=== PATIENT | male | born 1955 | race Caucasian/White ===

== ENCOUNTER 2024-12-04 17:39 | Emergency (ER) | payer MEDICARE, SELFPAY ==
[2024-12-04 17:53] VITALS: BP 127/96; PULSE 106; RESP 18; TEMP 36.6; O2SAT 96; BMI 26.3
[2024-12-04 18:34] LABS: MANUAL DIFF FLAG NO
[2024-12-04 18:56] LABS: Alanine Aminotransferase 25 U/L (0-40); Albumin Level 4.4 g/dL (3.5-5.0); Alkaline Phosphatase 87 U/L (39-117); Anion Gap 13 (12-20); Aspartate Amino Transferase 24 U/L (5-37); Basophils Absolute Auto 0.1 X10*3/uL (0.0-0.2); Basophils Percent Auto 0.9 % (0-2); Bilirubin Direct 0.2 mg/dL (0.0-0.5); Bilirubin Total 0.7 mg/dL (0.0-1.0); Blood Urea Nitrogen 22 mg/dL (9-16); Calcium 9.3 mg/dL (8.4-10.2); Carbon Dioxide 22 mmol/L (22-29); Chloride 107 mmol/L (96-108); Creatinine Clr Calc Pharmacy 68.8; Eosinophils Absolute Auto 0.1 X10*3/uL (0.0-0.4); Eosinophils Percent Auto 2.1 % (0-4); Estimated Glomerular Filt Rate > 60; Glucose Random 100 mg/dL (60-115); Hematocrit 42.8 % (42.0-52.0); Hemoglobin 14.8 g/dl (14.0-18.0); Imm Gran Abs Auto 0.02 X10*3/uL (0.00-0.03); Imm Gran Pct Auto 0.4 % (0.0-0.4); Lymphocytes Absolute Auto 1.2 X10*3/uL (1.2-4.9); Lymphocytes Percent Auto 22.1 % (20-40); Mean Corpuscular HGB Conc 34.6 g/dl (31.0-36.0); Mean Corpuscular Volume 89.5 fL (80.0-98.0); Mean Platelet Volume 11.3 fL (9.4-12.4); Monocytes Absolute Auto 1.1 X10*3/uL (0.1-1.2); Monocytes Percent Auto 19.5 % (2-11); Neutrophils Absolute Auto 3.1 x10*3/uL (2.0-8.3); Platelet Count 144 X10*3/uL (160-400); Potassium 4.1 mmol/L (3.3-5.1); Red Blood Count 4.78 X10*6/uL (4.60-5.80); Red Cell Distribution Width 12.9 % (11.0-16.0); Sodium 138 mmol/L (135-145); Total Protein 7.2 g/dL (6.5-8.0); White Blood Count 5.6 X10*3/uL (4.8-10.8)
[2024-12-04 19:15] LABS: Influenza A PCR NEGATIVE (Negative); Influenza B PCR NEGATIVE (Negative); Resp Syncy Virus RNA Qual PCR NEGATIVE (Negative); SARS COV2 PCR INHOUSE NEGATIVE (Negative)
[2024-12-04 19:31] LABS: Erythrocyte Sedimentation Rate 8 MM/HR (0-15)
--- NOTE | 2024-12-04 21:58 | ED_ITS ---
HPI - Skin/Abscess/Foreign Bdy General Chief complaint: Skin/Abscess/Foreign Body Stated complaint: Lumps on back of nec Time Seen by Provider: 12/04/24 21:55 Source: patient and family ( and [id number] who josiah nurse here at [facility] [place]) Mode of arrival: ambulatory Limitations: no limitations History of Present Illness ED Provider: Dr. Russell Fisher HPI narrative: 69-year-old male who presents emergency department for evaluation of a 1 behind his right ear which she states it is getting bigger. States that 3 or 4 days prior he developed a sharp pain behind his ear. He states that over the last 24 hours he developed a rash on the right side in his neck and a bump by in his ear and on his scalp. The patient has been working outdoors and he may have been exposed to poison viviana. He states he has had multiple episodes of poison viviana in the past but the rashes never been painful. He states the rash is Usually very itchy. Patient states this rash is painful and is 8/10 in his worse. He denied fever, chills. He denied nausea, vomiting, diarrhea. Related Data Home Medications ?Medication ?Instructions ?Recorded ?Confirmed atorvastatin 20 mg tablet 20 mg PO DAILY 11/26/22 11/26/22 levothyroxine 50 mcg tablet 50 mcg PO DAILY 11/26/22 11/26/22 prednisone 20 mg tablet mg PO 11/26/22 11/26/22 Previous Rx's ?Medication ?Instructions ?Recorded prednisone 50 mg tablet 50 mg PO DAILY 5 days #5 tabs 11/26/22 morphine 15 mg immediate release 15 mg PO Q6H PRN pain #14 tabs 12/04/24 tablet prednisone 10 mg tablet 10 mg PO DIRECTED #40 tabs 12/04/24 valacyclovir 1 gram tablet 1,000 mg PO Q8H 7 days #21 tabs 12/04/24 (Valtrex) Allergies Allergy/AdvReac Type Severity Reaction Status Date / Time No Known Allergies Allergy Verified 12/04/24 17:56 [No Known Allergies*] Review of Systems 2 Review of Systems: Yes all other systems are reviewed and are negative PMFSH Social History Social History Advance Directives: No Advance Directives Information Provided: Yes Physical Exam 2 Vital Signs: Vital Signs: Last Vital Signs Temp 97.9 F 12/04/24 22:56 Pulse 77 12/04/24 22:56 Resp 17 12/04/24 22:56 BP 125/89 12/04/24 22:56 Pulse Ox 98 12/04/24 22:56 O2 Del Method Room Air 12/04/24 22:56 BMI result Body Mass Index 26.3 Vital signs were normal. Exam: General: Awake, alert in no distress skin: The patient has a vesicular rash to his right scalp extending behind the right ear and onto the right neck. The rash does not involve his face and does not cross the midline. Medications Administered Discontinued Medications Generic Name Dose Route Start Last Admin Trade Name Freq PRN Reason Stop Dose Admin Morphine Sulfate 15 mg 12/04/24 22:35 12/04/24 22:45 Morphine Sulfate Immed Release 15 Mg Tablet PO 12/04/24 22:36 15 mg ONCE ONE Administration Prednisone 40 mg 12/04/24 22:34 12/04/24 22:46 Prednisone 20 Mg Tablet PO 12/04/24 22:35 40 mg ONCE ONE Administration Valacyclovir HCl 1,000 mg 12/04/24 22:34 12/04/24 22:46 Valacyclovir Hcl 1,000 Mg Tablet PO 12/04/24 22:35 1,000 mg ONCE ONE Administration Medical Decision Making Medical Decision Making [facility] Narrative: 69-year-old male who presents emergency department for evaluation of a 1 behind his right ear which she states it is getting bigger. States that 3 or 4 days prior he developed a sharp pain behind his ear. He states that over the last 24 hours he developed a rash on the right side in his neck and a bump by in his ear and on his scalp. The patient has been working outdoors and he may have been exposed to poison viviana. He states he has had multiple episodes of poison viviana in the past but the rashes never been painful. He states the rash is Usually very itchy. Patient states this rash is painful and is 8/10 in his worse. He denied fever, chills. He denied nausea, vomiting, diarrhea. Vital signs were normal. Physical examination revealed a vesicular rash to his right scalp, postauricular area and right neck. Differential diagnosis: Includes but is not limited to Shingles, poison viviana, nonspecific dermatitis, abscess Course: my interpretation of the patient's laboratory evaluation is as follows: Platelet count low 144,000. comprehensive metabolic panel was unremarkable. COVID-19, influenza and RSV were negative. ESR and CRP were normal. the patient's presentation and physical findings are consistent with shingles/herpes zoster. I did discuss this with the patient in his family. The patient was given morphine 15 mg orally, prednisone 40 mg orally and valacyclovir 1000 mg orally here in the emergency department. He was given prescriptions for valacyclovir 1000 mg 3 times a day for 7 days, a tapering course of prednisone and morphine 15 mg every 6 hours as needed for pain. He was given printed and verbal instructions and discharged home Admission/Observation Consideration of admission/observation: Escalation of care including admission/observation considered ( yes) Lab Data [facility] Lab Attestation statement: I reviewed the patient's lab results. 12/04/24 18:27 12/04/24 18:27 Labs: Lab Results 12/04/24 Range/Units 18:27 WBC 5.6 (4.8-10.8) X10*3/uL RBC 4.78 (4.60-5.80) X10*6/uL Hgb 14.8 (14.0-18.0) g/dl Hct 42.8 (42.0-52.0) % MCV 89.5 (80.0-98.0) fL MCH 31.0 (27.0-33.0) pg MCHC 34.6 (31.0-36.0) g/dl RDW 12.9 (11.0-16.0) % Plt Count 144 L (160-400) X10*3/uL MPV 11.3 (9.4-12.4) fL Immature Gran % (Auto) 0.4 (0.0-0.4) % Neut % (Auto) 55.0 (45-73) % Lymph % (Auto) 22.1 (20-40) % Mellette % (Auto) 19.5 H (2-11) % Eos % (Auto) 2.1 (0-4) % Baso % (Auto) 0.9 (0-2) % Lymph # (Auto) 1.2 (1.2-4.9) X10*3/uL Mellette # (Auto) 1.1 (0.1-1.2) X10*3/uL Eos # (Auto) 0.1 (0.0-0.4) X10*3/uL Baso # (Auto) 0.1 (0.0-0.2) X10*3/uL Abs Immat Gran (auto) 0.02 (0.00-0.03) X10*3/uL Absolute Neuts (auto) 3.1 (2.0-8.3) x10*3/uL Absolute Nucleated RBC 0.000 (0.0-0.012) X10*3/uL Nucleated RBC % (auto) 0.0 (0.0-0.2) /100WBC ESR 8 (0-15) MM/HR Sodium 138 (135-145) mmol/L Potassium 4.1 (3.3-5.1) mmol/L Chloride 107 (96-108) mmol/L Carbon Dioxide 22 (22-29) mmol/L Anion Gap 13 (12-20) BUN 22 H (9-16) mg/dL Creatinine 1.06 (0.5-1.4) mg/dL Estim Creat Clear Calc 68.8 Estimated GFR > 60 Random Glucose 100 (60-115) mg/dL Calcium 9.3 (8.4-10.2) mg/dL Total Bilirubin 0.7 (0.0-1.0) mg/dL Direct Bilirubin 0.2 (0.0-0.5) mg/dL AST 24 (5-37) U/L ALT 25 (0-40) U/L Alkaline Phosphatase 87 (39-117) U/L C-Reactive Protein 0.60 H (< or = 0.50) mg/dL Total Protein 7.2 (6.5-8.0) g/dL Albumin 4.4 (3.5-5.0) g/dL Influenza Type A (PCR) NEGATIVE (Negative) Influenza Type B (PCR) NEGATIVE (Negative) RSV RNA Qual (PCR) NEGATIVE (Negative) SARS-CoV-2 RNA (RT-PCR) NEGATIVE (Negative) Independent Historian Clinical information obtained from an independent historian. History obtained from or confirmed by: Spouse and Other ( [id number]) Prescription Management I considered prescription management with: Pain Medication ( morphine), Antiviral ( valacyclovir) and Other ( anti-inflammatory steroids: Prednisone) Chronic Conditions Patient?s care impacted by: Other ( hyperlipidemia) Discharge Plan Discharge Clinical Impression: Shingles Patient Disposition: Home, Self-Care Instructions: Shingles (ED) Additional Instructions: Your symptoms and rash are consistent with shingles. Take valacyclovir 1000 mg every 8 hours for 7 days Take prednisone 10 mg pills in the following tapering course: Day 1 through 7, take 4 pills (40 mg) Day 8 and 9, take 3 pills (30 mg) Day 10 and 11, take 2 pills (20 mg) Day 12 and 13, take 1 pill (10 mg) (Disp 40) While you ?are taking prednisone, do not take any NSAIDs (Motrin, Advil, ibuprofen, Aleve, naproxen). Take Tylenol (acetaminophen) 500 mg pills, 2 pills every 6 hours as needed for pain or fever. For pain not relieved by prednisone or Tylenol take morphine 15 mg pills, 1 pill every 6 hours as needed for pain. This medication will make you sleepy, do not drive or work while taking this medication. Morphine is a narcotic medication and can be addicting. If you are concerned about addiction you can ask the pharmacist for less pills or do not get this prescription filled. Follow-up with your doctor in 2 days. Please return to the emergency department if your symptoms get worse or if you develop any symptoms that are concerning to you. Prescriptions: New prednisone 10 mg tablet 10 mg PO DIRECTED Qty: 40 0RF Rx Instructions: Day 1-7, 4pills. Day 8-9, 3 pills. Day 10-11, 2 pills. Day 12-13, 1 pill valacyclovir [Valtrex] 1 gram tablet 1,000 mg PO Q8H 7 Days Qty: 21 0RF morphine 15 mg tablet 15 mg PO Q6H PRN (Reason: pain) Qty: 14 0RF Rx Instructions: Partial Fill upon patient request. No Action prednisone 20 mg tablet PO levothyroxine 50 mcg tablet 50 mcg PO DAILY atorvastatin 20 mg tablet 20 mg PO DAILY prednisone 50 mg tablet 50 mg PO DAILY 5 Days Qty: 5 0RF Interventions: ED Discharge Assessment Last Done: 12/04/24 22:56 Discharge Date/Time: 12/04/24 22:57 Print Language: [place]
[2024-12-04 22:18] VITALS: BP 125/89; PULSE 77; RESP 17; TEMP 36.6; O2SAT 98
[2024-12-04] MEDS: Morphine Sulfate Immed Release 15 MG TABLET PO (22:45)
[2024-12-04] MEDS: predniSONE 20 MG TABLET 40 MG PO (22:46)
[2024-12-04] MEDS: valACYclovir HCL 1,000 MG TABLET 1000 MG PO (22:46)
[2024-12-04 22:56] VITALS: BP 125/89; PULSE 77; RESP 17; TEMP 36.6; O2SAT 98
== END 2024-12-04 22:57 | disposition home or self-care (01) ==
PROVIDERS: Physician Assistant; Emergency Provider Emergency Medicine Emergency Medical Services; PCP Family Medicine
DX: B02.8 Zoster with other complications (principal); R22.1 Localized swelling, mass and lump, neck; Z03.818 Encounter for observation for suspected exposure to other biological agents ruled out; Z79.899 Other long term (current) drug therapy
CPT/HCPCS: 0241U; 36415; 80048; 80076; 85025; 85652; 86140; 99283